=== PATIENT | male | born 1950 | race African-American/Black ===

== ENCOUNTER 2020-10-23 21:08 | Emergency (ER) | payer OTHER ==
[~2020-10-23] VITALS: Ht 172.7 cm; Wt 68.0 kg
[2020-10-23 22:52] LABS: PLATELET COUNT 121 K/uL (142-355)
[2020-10-23 22:59] LABS: POTASSIUM 3.1 mmol/L (3.6-5.2)
[2020-10-24 01:01] VITALS: BP 116/67; TEMP 98.6
--- NOTE | 2020-10-28 13:20 | NUR ---
1320- COVID RESULTS GIVEN TO PATIENT. VERBALIZES UNDERSTANDING.
== END 2020-10-24 01:00 | disposition home or self-care (01) ==
LOC: ED 21:08
PROVIDERS: Hospitalist
DX: J06.9 Acute upper respiratory infection, unspecified (principal); U07.1 COVID-19; R50.9 Fever, unspecified; E86.0 Dehydration; F17.210 Nicotine dependence, cigarettes, uncomplicated
CPT/HCPCS: 36415; 80053; 85027; 87635; 96360; 96375; 99284; J1100; U0003

== ENCOUNTER 2020-10-27 11:25 | Emergency (ER) | payer OTHER ==
[~2020-10-27] VITALS: Ht 167.6 cm; Wt 63.5 kg
[2020-10-27 11:25] VITALS: TEMP 99.8
[2020-10-27 11:55] VITALS: BP 141/71
[2020-10-27 12:18] LABS: PLATELET COUNT 208 K/uL (142-355)
== END 2020-10-27 12:30 | disposition home or self-care (01) ==
LOC: ED 11:40
PROVIDERS: Emergency Medicine Emergency Medical Services
DX: R06.09 Other forms of dyspnea (principal); U07.1 COVID-19; Z53.29 Procedure and treatment not carried out because of patient's decision for other reasons
CPT/HCPCS: 36600; 82805; 85027; 93005; 99283